=== PATIENT | female | born 1985 ===

== ENCOUNTER 2017-05-15 19:45 | Inpatient (IN) | payer OTHER ==
[2017-05-15] MEDS ORDERED: LIDOCAINE 1% 300 MG/30 ML SDV ONE (22:23)
[2017-05-15] MEDS ORDERED: OXYTOCIN 10 UNIT/ML VIAL ONE (22:23)
[2017-05-15] MEDS ORDERED: AMMONIA AROMATIC 1 EACH AMP IH ONE (22:23)
[2017-05-15] MEDS ORDERED: OLIVE OIL 118 ML BTL ONE (22:23)
[2017-05-15] MEDS ORDERED: MISOPROSTOL 200 MCG TAB ONE (22:24)
[2017-05-15] MEDS ORDERED: EPSOM SALT 454 GM TP PRN (22:30)
[2017-05-15] MEDS ORDERED: LR 1,000 ML IV PRN (22:30)
[2017-05-15] MEDS ORDERED: OLIVE OIL 118 ML BTL MISC PRN (22:30)
[2017-05-15] MEDS ORDERED: TERBUTALINE SULFATE 1 MG/ML VIAL IV PRN (22:30)
[2017-05-15] MEDS ORDERED: OXYTOCIN 20 UNIT in LR 1,000 ML IV PRN (22:30)
[2017-05-15 22:51] LABS: % IMMATURE GRANULYOCYTES 1.7 % (0.0-1.1); ABSOLUTE IMMATURE GRANULOCYTES 0.19 10^3/uL (0.00-0.10); ADD DIFF? NO; ADD MORPH? NO; ADD SCAN? NO; ATYPICAL LYMPHOCYTE FLAG 0 (0-99); FRAGMENT RBC FLAG 0 (0-99); HEMATOCRIT 39.6 % (38.0-47.0); HEMOGLOBIN 13.9 g/dL (12.6-16.3); LEFT SHIFT FLG 10 (0-99); LIPEMIA HEMOLYSIS FLAG 90 (0-99); MEAN CELL HEMOGLOBIN 32.6 pg (27.9-34.1); MEAN CELL HEMOGLOBIN CONCENTR. 35.1 g/dL (32.4-36.7); MEAN PLATELET VOLUME 11.7 fL (8.7-11.7); PLATELET CLUMPS FLAG 0 (0-99); PLATELET COUNT 203 10^3/uL (150-400); RED BLOOD CELL COUNT 4.26 10^6/uL (4.18-5.33); RED CELL DISTRIBUTION WIDTH 13.2 % (11.5-15.2)
--- NOTE | 2017-05-15 23:07 | OBPROG ---
Labor Progress Note Assessment/Plan: Assessment: Plan: Subjective/Intrapartum Course: 05/15/17 23:04 patient rapidly progressed from 4 to 7 cm with bulging bag of water. requested an epidural. anesthesia placing epidural in another patient. patient using nitrous oxide right now. helping a little but anxious she will miss her epidural. SROM. SVe 7/100/-1. status reassuring. anesthesia will see patient next. Objective: 05/15/17 22:20 - SVE Dilation (cm): 7 Effacement (%): 100 Station: -1 Membranes: SROM Amniotic Fluid Color: Clear - Contraction Pattern Assessment Current Contraction Pattern: Regular - FHR Assessment Johnson FHR (bpm): 120 FHR Pattern Variability: Moderate FHR Category: 1 - AP Antepartum Course: 05/15/17 23:08 dated by lmp consistent with first trimester scan. regular care at [facility] since first trimester. uncomplicated . with G1 pushed for 3 hours then had VAVD. Oxytocin Orders Assessment - Pre-Induction/Augmentation Assessment Gestational Age: 38 week(s) and 5 day(s) ICD10 Worksheet Patient Problems: Problems Problem Status Onset Active labor at term Acute
[2017-05-15] MEDS ORDERED: PHENYLEPHRINE HCL 100 MCG/ML SYR ONE (23:09)
[2017-05-15] MEDS ORDERED: BUPIVACAINE 0.25% 30 ML SDV ONE (23:09)
[2017-05-15] MEDS ORDERED: fentaNYL 2MCG/ML/BUP 0.1% RTU 100 ML BAG EP ONE (23:09)
[2017-05-15] MEDS ORDERED: fentaNYL 100 MCG/2 ML INJ ONE ×2 (23:10→23:11)
--- NOTE | 2017-05-15 23:23 | GHP ---
[f rep st] PREOP HISTORY AND PHYSICAL DATE OF ADMISSION: 05/15/2017 ADMISSION DIAGNOSES: 1. Intrauterine at 38-5/7 weeks' gestation. 2. Active labor. HISTORY OF PRESENT ILLNESS: The patient is a 32-year-old 3, para 1-0-1-1, who is 38-5/7 week s' gestation. Her estimated date of confinement is 05/24/2017 based on last menstrual period of 07/2016, consistent with a 7-week ultrasound. Patient began having strong regular contractions this a fternoon. She was 3 cm dilated in the office. She arrived to Labor and Delivery and was 4 cm dilate d and has progressed to 7 cm dilated. She is having strong regular contractions and having primarily back labor. Infant's head is still high, so an abdominal ultrasound was performed, which confirmed the baby to be in the cephalic, but occiput posterior presentation. Patient is requesting an epidura l, and status is reassuring. PAST MEDICAL HISTORY: History of pyelonephritis, history of irregular cycles. MEDICATIONS: vitamins and iron. PAST SURGICAL HISTORY: [place] teeth extraction. ALLERGIES: No known drug allergies. SOCIAL HISTORY: Patient is . She works as a NICU nurse at . She lives with her an d their other child. She denies tobacco, alcohol, or drug use. FAMILY MEDICAL HISTORY: Noncontributory. OBSTETRICAL/GYNECOLOGIC HISTORY: Menarche age 14. Periods every 35-42 days, lasting 5 days. She is a 3, para 1-0-1-1. In 2012, she had a spontaneous . She did not require A D and C. In 01/2014, she had a vacuum-assisted vaginal delivery of a 3-tzwdw-77-ounce female at 39 we eks' gestation. She had a partial third-degree and had pushed for 3-1/2 hours. Current peraza s been uncomplicated. Patient does have a remote history of an abnormal Pap smear. Colposcopy was n egative. Repeat Paps have been normal since then. REVIEW OF SYSTEMS: A 10-point review of systems is negative. She states positive contractions. Den ies loss of fluid or vaginal bleeding. She denies any headache or changes in vision or nausea or vom iting. PHYSICAL EXAMINATION: VITAL SIGNS: Stable. GENERAL APPEARANCE: Uncomfortable, but alert and orien olman x3. PSYCHIATRIC: Appropriate affect. MUSCULOSKELETAL: Grossly intact. NEUROLOGIC: Grossly i ntact. NECK: Mobile and supple. HEART: Regularly regular. LUNGS: Clear to auscultation bilatera lly. ABDOMEN: Gravid, nondistended, nontender. EXTREMITIES: No calf tenderness or edema. Pelvic: On cervical exam, she is 7 cm dilated, 100% effaced, and -3 station with a bulging bag of water. I nfant is confirmed to be in the vertex presentation by ultrasound. Heart tracing is category I, and she is having contractions every 2 minutes. LABORATORY DATA: labs: Blood type A positive, antibody screen negative. Rubella immune. GBS negative. HBsAg negative. HIV negative. Her Verifi screen is negative. ASSESSMENT AND PLAN: A 32-year-old, 3, para 1-0-1-1 at 38-5/7 weeks' gestation in active lab or, requesting an epidural. Patient will be managed expectantly after that. /[id number]/MODL
--- NOTE | 2017-05-15 23:55 | OBPROG ---
Labor Progress Note Assessment/Plan: Assessment: Plan: Subjective/Intrapartum Course: 05/15/17 23:04 patient rapidly progressed from 4 to 7 cm with bulging bag of water. requested an epidural. anesthesia placing epidural in another patient. patient using nitrous oxide right now. helping a little but anxious she will miss her epidural. SROM. SVe 7/100/-1. status reassuring. anesthesia will see patient next. Objective: 05/15/17 22:20 Patient ABO/Rh A POSITIVE 05/15/17 22:20 - SVE Dilation (cm): 7 Effacement (%): 100 Station: -1 Membranes: SROM Amniotic Fluid Color: Clear - Contraction Pattern Assessment Current Contraction Pattern: Regular - FHR Assessment Johnson FHR (bpm): 140 FHR Pattern Variability: Moderate FHR Category: 1 - AP Antepartum Course: 05/15/17 23:08 dated by lmp consistent with first trimester scan. regular care at [facility] since first trimester. uncomplicated . with G1 pushed for 3 hours then had VAVD. Oxytocin Orders Assessment - Pre-Induction/Augmentation Assessment Gestational Age: 38 week(s) and 5 day(s) ICD10 Worksheet Patient Problems: Problems Problem Status Onset Active labor at term Acute
--- NOTE | 2017-05-16 01:11 | PREANESOB ---
Obstetric Pre-Anesthesia Info - General Info Proposed Procedure: Labor and delivery. : 3 Para: 1 REGIS: 05/24/17 Gestational Age: 38 week(s) and 5 day(s) - Info Status: Full Term Monitors: External FHR Baseline (bpm): 140 FHR Pattern: Reassuring - Labor Status Cervical Dilation per last OB SVE: 7 Station per last OB SVE: -1 Amniotic Fluid Color: Clear Indications for Labor Analgesia: Pain Control Labor Epidural: Proposed Anesthesia ROS: Prior labor epidural. Allergies/Adverse Reactions: Allergy/AdvReac Type Severity Reaction Status Date / Time No Known Allergies Allergy Unverified 10/20/11 15:59 Visit Medications: Generic Name Dose Route Start Last Admin Trade Name Freq PRN Reason Stop Dose Admin Lactated Ringer's 1,000 mls @ 0 mls/hr 05/15/17 22:30 Lr IV 11/11/17 22:29 PRN PRN SEE PROTOCOL CONDITIONS Protocol Per Protocol Oxytocin 20 unit/ Lactated 1,002 mls @ 150 mls/hr 05/15/17 22:30 Ringer's IV PRN PRN Post- bleeding Ibuprofen 600 mg 05/15/17 22:30 Motrin PO 11/11/17 22:29 Q6HRS PRN post , inflammation Magnesium Sulfate 454 gm 05/15/17 22:30 Epsom Salt TP 11/11/17 22:29 Q1H PRN perineal discomfort Crumrod Oil 118 ml 05/15/17 22:30 Sweet Oil MISC 11/11/17 22:29 ONCE PRN perineal massage Terbutaline Sulfate 0.25 mg 05/15/17 22:30 Brethine IV 11/11/17 22:29 ONCE PRN Tachysystole Discontinued Medications Generic Name Dose Route Start Last Admin Trade Name Freq PRN Reason Stop Dose Admin Ammonia (Aromatic Spirit) Confirm 05/15/17 22:23 Ammonia Aromatic Administered 05/15/17 22:24 Dose 1 each IH .STK-MED ONE Bupivacaine HCl Confirm 05/15/17 23:09 Sensorcaine 0.25% Sdv Administered 05/15/17 23:10 Dose 30 ml .ROUTE .STK-MED ONE Fentanyl Confirm 05/15/17 23:10 Sublimaze Administered 05/15/17 23:11 Dose 100 mcg .ROUTE .STK-MED ONE Fentanyl Confirm 05/15/17 23:11 Sublimaze Administered 05/15/17 23:12 Dose 100 mcg .ROUTE .STK-MED ONE Fentanyl/Bupivacaine HCl Confirm 05/15/17 23:09 Fentanyl/Bupivacaine/Ns 2 Mcg/Ml 0.1% (Premix Administered 05/15/17 23:10 Dose 100 ml EP .STK-MED ONE Lidocaine HCl Confirm 05/15/17 22:23 Lidocaine Hcl 1% Administered 05/15/17 22:24 Dose 300 mg .ROUTE .STK-MED ONE Misoprostol Confirm 05/15/17 22:24 Cytotec Administered 05/15/17 22:25 Dose 800 mcg .ROUTE .STK-MED ONE Crumrod Oil Confirm 05/15/17 22:23 Sweet Oil Administered 05/15/17 22:24 Dose 118 ml .ROUTE .STK-MED ONE Oxytocin Confirm 05/15/17 22:23 Pitocin Administered 05/15/17 22:24 Dose 40 unit .ROUTE .STK-MED ONE Phenylephrine HCl Confirm 05/15/17 23:09 Neosynephrine Administered 05/15/17 23:10 Dose 1,000 mcg .ROUTE .STK-MED ONE - Anesthesia History Response to Local Anesthetics: Normal Anesthesia & Operative History: No Prior Problems Family Anesthesia History: Negative - Social History Substance Use/Abuse: Denies - Vital Signs Blood Pressure: 135/68 Heart Rate: 85 Height/Weight (Nursing): Height 162.56 cm Weight 97.976 kg - Focused Exam Neck exam: FROM Mallampati Score: Class 1 Mouth exam: normal dental/mouth exam Pulmonary: no respiratory distress Cardiovascular: regular rate and rhythym Labs: 05/15/17 22:20 Patient ABO/Rh A POSITIVE 05/15/17 22:20 - Plan Anesthetic Plan: CSE Consent Signed and on Chart: Yes Patient/Guardian Understands and Agrees to Plan: Yes Urgent/Emergent Case: Rebekah schmidt completed preop but documented later for safe timely pt care (Written consent after CSE.)
--- NOTE | 2017-05-16 01:15 | POSTANESTH ---
Post Anesthetic Evaluation Cardiovascular Status: Normal, Stable, Similar to Pre-Op Cond Respiratory Status: Normal, Stable, Similar to Pre-op Cond. Level of Consciousness/Mental Status: Can Participate in Eval, Alert and Oriented Pain Control: Adequate, Prn Tx Ordered Nausea/Vomiting Control: Adequate, Prn Tx Ordered Complications Possibly Related to Anesthesia: None Noted
[2017-05-16] MEDS ORDERED: PHENYLEPHRINE HCL 100 MCG/ML SYR IVP PRN (01:16)
[2017-05-16] MEDS ORDERED: ONDANSETRON 4 MG/2 ML VIAL IVP PRN (01:16)
[2017-05-16] MEDS ORDERED: LR 500 ML IV SCH (01:30)
[2017-05-16] MEDS ORDERED: fentaNYL 2MCG/ML/BUP 0.1% RTU 100 ML EP SCH (01:30)
[2017-05-16] MEDS: CALCIUM CARBONATE 500 MG CHEWABLE TAB PO PRN ×2 (01:50→05:00)
--- NOTE | 2017-05-16 02:06 | OBPROG ---
Labor Progress Note Assessment/Plan: Assessment: Plan: Subjective/Intrapartum Course: 05/15/17 23:04 patient rapidly progressed from 4 to 7 cm with bulging bag of water. requested an epidural. anesthesia placing epidural in another patient. patient using nitrous oxide right now. helping a little but anxious she will miss her epidural. SROM. SVe 7/100/-1. status reassuring. anesthesia will see patient next. 05/16/17 02:03 comfortable with epidural. having vomiting secondary to heartburn. SVE stretchy to 8-9/100/-1. IUPC placed. will augment with pitocin if needed. will labor down after complete if status reassuring due to hx of pushing x 3 h last time Objective: 05/15/17 22:20 Patient ABO/Rh A POSITIVE 05/15/17 22:20 Temp Pulse Resp BP Pulse Ox 85 135/68 H 05/16/17 01:14 05/16/17 01:14 - SVE Dilation (cm): 9 Effacement (%): 100 Station: -1 Membranes: SROM Amniotic Fluid Color: Clear - Contraction Pattern Assessment Current Contraction Pattern: Regular - FHR Assessment Johnson FHR (bpm): 150 FHR Pattern Variability: Moderate FHR Category: 1 - AP Antepartum Course: 05/15/17 23:08 dated by lmp consistent with first trimester scan. regular care at [facility] since first trimester. uncomplicated . with G1 pushed for 3 hours then had VAVD. Oxytocin Orders Assessment - Pre-Induction/Augmentation Assessment Gestational Age: 38 week(s) and 5 day(s) ICD10 Worksheet Patient Problems: Problems Problem Status Onset Active labor at term Acute
--- NOTE | 2017-05-16 02:48 | OBPROG ---
Labor Progress Note Assessment/Plan: Assessment: Plan: Subjective/Intrapartum Course: 05/15/17 23:04 patient rapidly progressed from 4 to 7 cm with bulging bag of water. requested an epidural. anesthesia placing epidural in another patient. patient using nitrous oxide right now. helping a little but anxious she will miss her epidural. SROM. SVe 7/100/-1. status reassuring. anesthesia will see patient next. 05/16/17 02:03 comfortable with epidural. having vomiting secondary to heartburn. SVE stretchy to 8-9/100/-1. IUPC placed. will augment with pitocin if needed. will labor down after complete if status reassuring due to hx of pushing x 3 h last time 05/16/17 02:47 contractions spaced. 140-170 mvu's. will start pitocin. status is reassuring. Objective: 05/15/17 22:20 Patient ABO/Rh A POSITIVE 05/15/17 22:20 Temp Pulse Resp BP Pulse Ox 85 135/68 H 05/16/17 01:14 05/16/17 01:14 - SVE Membranes: SROM Amniotic Fluid Color: Clear - Contraction Pattern Assessment Current Contraction Pattern: Regular, Irregular - FHR Assessment Johnson FHR (bpm): 140 FHR Pattern Variability: Moderate FHR Category: 1 - AP Antepartum Course: 05/15/17 23:08 dated by lmp consistent with first trimester scan. regular care at [facility] since first trimester. uncomplicated . with G1 pushed for 3 hours then had VAVD. Oxytocin Orders Assessment - Pre-Induction/Augmentation Assessment Gestational Age: 38 week(s) and 5 day(s) ICD10 Worksheet Patient Problems: Problems Problem Status Onset Active labor at term Acute
--- NOTE | 2017-05-16 07:28 | OBDEL ---
Info Type: Vaginal Presentation at Delivery: Vertex L&D Analgesia/Anesthesia Type: Epidural GBS+: No Intrapartum Medications: Generic Name Dose Route Start Last Admin Trade Name Nakul PRN Reason Stop Dose Admin Calcium Carbonate 500 mg 05/16/17 01:26 05/16/17 05:00 Tums PO 11/12/17 01:25 500 mg TID PRN Administration Indigestion Ondansetron HCl 4 mg 05/16/17 01:16 05/16/17 02:14 Zofran IVP 05/17/17 01:15 4 mg Q4HRS PRN Administration Nausea/Vomiting, Can't Take PO - Hospital Course Intrapartum: 05/15/17 23:04 patient rapidly progressed from 4 to 7 cm with bulging bag of water. requested an epidural. anesthesia placing epidural in another patient. patient using nitrous oxide right now. helping a little but anxious she will miss her epidural. SROM. SVe 7/100/-1. status reassuring. anesthesia will see patient next. 05/16/17 02:03 comfortable with epidural. having vomiting secondary to heartburn. SVE stretchy to 8-9/100/-1. IUPC placed. will augment with pitocin if needed. will labor down after complete if status reassuring due to hx of pushing x 3 h last time 05/16/17 02:47 contractions spaced. 140-170 mvu's. will start pitocin. status is reassuring. Indications for Delivery: Spontaneous Labor Vaginal Delivery - Delivery Provider Delivery Physician/CNM: Sonia Gonzalez - Labor and Delivery Onset of Contractions Date: 05/15/17 Onset of Contractions Time: 15:00 Onset of Contractions Type: Augmented Rupture of Membranes Date: 05/15/17 Rupture of Membranes Time: 22:51 Rupture of Membranes Type: Spontaneous Amniotic Fluid Color: Clear Dilation Complete Date: 05/16/17 Dilation Complete Time: 04:56 Placenta Delivery Date: 05/16/17 Placenta Delivery Time: 07:04 Total Hours of Labor: 16 Non-surgical Procedures: IUPC Laceration: 2nd Degree Repair: 3-0 Vaginal Sponge Count Correct: Yes Vaginal Needle Count Correct: Yes Vaginal Sweep Performed: Yes EBL: 300 Delivery Events: Nuchal Cord Delivery Comment: labored down. pushed x 3 contractions - Medications Labor Augmentation/Induction Methods Used: Pitocin Labor Augmentation/Induction Indication: Contraction Strength Inadequate Data Johnson Delivery Date: 05/16/17 Delivery Time: 06:58 REGIS: 05/24/17 Gestational Age: 38 week(s) and 6 day(s) Sex of : Female Score (1 Min): 8 Score (5 Min): 9 ICD10 Worksheet Patient Problems: Problems Problem Status Onset Active labor at term Acute
[2017-05-16] MEDS ORDERED: SIMETHICONE 80 MG TAB CHEW PO PRN (07:33)
[2017-05-16] MEDS ORDERED: HYDROCORTISONE 0.5% CREAM TP PRN (07:33)
[2017-05-16] MEDS ORDERED: DOCUSATE SODIUM 100 MG CAP PO PRN (07:33)
[2017-05-16] MEDS ORDERED: ACETAMINOPHEN 325 MG TAB PO PRN (07:33)
[2017-05-16] MEDS: IBUPROFEN 600 MG TAB PO PRN ×3 (09:03→20:48)
[2017-05-16] MEDS: HYDROCODONE/APAP 5/325 TAB PO PRN (18:40)
[2017-05-17] MEDS: IBUPROFEN 600 MG TAB PO PRN ×3 (02:49→15:57)
[2017-05-17] MEDS: HYDROCODONE/APAP 5/325 TAB PO PRN (06:11)
[2017-05-17 09:53] VITALS: BP 106/72; PULSE 72; RESP 16; TEMP 97.6; O2SAT 98
--- NOTE | 2017-05-17 15:37 | OBPP ---
Progress Note Assessment/Plan: Assessment: 32-year-old WF PPD#1 s/p doing well. Desires DC home today. Plan: Discharge home. 05/17/17 15:34 Subjective/ Course: 05/17/17 15:36 Denies significant pain or uterine cramping. Denies fever, chills or generalized complaints. . Reports minimal vaginal bleeding. Considering IUD for PP contraception. Desires DC home today. Objective: 05/15/17 22:20 Patient ABO/Rh A POSITIVE 05/15/17 22:20 Temp Pulse Resp BP Pulse Ox 36.4 C 72 16 106/72 98 05/17/17 08:00 05/17/17 08:00 05/17/17 08:00 05/17/17 08:00 05/17/17 08:00 Uterine Position/Fundal Height: Umbilicus -1 Uterine Tone: Firm Physical Exam - Physical Exam EENT: normal ENT inspection Neck: supple Respiratory: lungs clear, normal breath sounds Cardiac/Chest: regular rate, rhythm Abdomen: normal bowel sounds, non-tender, soft Extremities: non-tender DTR- Lower Extremities: Knee (R): 1+, Knee (L): 1+ Skin: normal color, warm/dry Neuro/Psych: no motor/sensory deficits, alert, normal mood/affect, oriented x 3
--- NOTE | 2017-05-17 15:39 | OBGCSDC ---
General Delivery Information - General Info : 3 Para: 2 Abortions: 1 Type: Vaginal L&D Analgesia/Anesthesia Type: Epidural, Local Admission Date: 05/15/17 Labs: Patient ABO/Rh A POSITIVE 05/15/17 22:20 Hct 39.6 % (38.0-47.0) 05/15/17 22:20 - Hospital Course Antepartum: 05/15/17 23:08 dated by lmp consistent with first trimester scan. regular care at [facility] since first trimester. uncomplicated . with G1 pushed for 3 hours then had VAVD. Intrapartum: 05/15/17 23:04 patient rapidly progressed from 4 to 7 cm with bulging bag of water. requested an epidural. anesthesia placing epidural in another patient. patient using nitrous oxide right now. helping a little but anxious she will miss her epidural. SROM. SVe 7/100/-1. status reassuring. anesthesia will see patient next. 05/16/17 02:03 comfortable with epidural. having vomiting secondary to heartburn. SVE stretchy to 8-9/100/-1. IUPC placed. will augment with pitocin if needed. will labor down after complete if status reassuring due to hx of pushing x 3 h last time 05/16/17 02:47 contractions spaced. 140-170 mvu's. will start pitocin. status is reassuring. : 05/17/17 15:36 Denies significant pain or uterine cramping. Denies fever, chills or generalized complaints. . Reports minimal vaginal bleeding. Considering IUD for PP contraception. Desires DC home today. Vaginal - Delivery Provider Delivery Physician/CNM: Sonia Gonzalez - Diagnosis Labor: Augmented Rupture of Membranes Type: Spontaneous Amniotic Fluid Color: Clear Laceration: 2nd Degree Repair: 3-0 Delivery Events: Nuchal Cord - Procedures Non-surgical Procedures: IUPC - Delivery Non-surgical Procedures: IUPC EBL: 300 Data Johnson Delivery Date: 05/16/17 Delivery Time: 06:58 REGIS: 05/24/17 Gestational Age: 39 week(s) and 0 day(s) Sex of : Female Weight (gm): 3482 g Score (1 Min): 8 Score (5 Min): 9 Discharge Information - Discharge Information Prescriptions: Ibuprofen [Motrin (*)] 600 mg PO Q6HRS PRN #40 tab PRN Reason: post , inflammation Condition: Good Instruction/Follow Up: Six Weeks
== END 2017-05-17 17:45 | disposition home or self-care (01) | DRG 775 ==
LOC: OBSVTOIN 19:45 → FLD 19:45 → FOB 05-16 11:00
PROVIDERS: ADMIT Obstetrics & Gynecology; ATTEND Obstetrics & Gynecology
PROC: 10E0XZZ Delivery of Products of Conception, External Approach (ICD-10-PCS; principal; 2017-05-15)
PROC: 0KQM0ZZ Repair Perineum Muscle, Open Approach (ICD-10-PCS; principal; 2017-05-15)
DX: O70.1 Second degree perineal laceration during delivery (principal); O69.81X0 Labor and delivery complicated by cord around neck, without compression, not applicable or unspecified; R12 Heartburn; Z3A.38 38 weeks gestation of pregnancy; Z37.0 Single live birth
CPT/HCPCS: J2370; J2405; J3010